=== PATIENT | male | born 1985 | race Caucasian/White ===

== ENCOUNTER 2016-08-18 09:17 | Emergency (ER) | payer OTHER ==
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
[~2016-08-18 09:17] MED LIST: CLINDAMYCIN HC300 MG PO; ERYC250 MG PO; KEFLEX PO; KEFLEX500 M1 PO; MOTRIN600 MG PO; NAPROSYN375 MG PO; NAPROSYN500 MG PO; NAPROXEN PO; NO MEDICATIONS; PEN-VEE K PO; PERCOCET PO; PHENERGAN PO; VOLTAREN75 MG PO
[2016-08-18] MEDS ORDERED: NEURONTIN PO (09:28)
[2016-08-18] MEDS ORDERED: ZOFRAN PO (09:29)
[2016-08-18] MEDS ORDERED: PHENERGAN PO (09:29)
[2016-08-18] MEDS ORDERED: VANCOMYCIN IV (09:29)
== END 2016-08-18 10:57 | disposition home or self-care (01) ==
LOC: SED 09:17
DX: Z43.0 Encounter for attention to tracheostomy (principal); F31.9 Bipolar disorder, unspecified; Z88.0 Allergy status to penicillin; Z88.5 Allergy status to narcotic agent
CPT/HCPCS: 31502; 71010; 94640; 99284

== ENCOUNTER 2016-11-29 08:36 | Emergency (ER) | payer OTHER ==
[~2016-11-29 08:36] MED LIST changes: +NEURONTIN PO; +VANCOMYCIN IV; +ZOFRAN PO
== END 2016-11-29 09:16 | disposition home or self-care (01) ==
LOC: SED 08:36
DX: Z43.0 Encounter for attention to tracheostomy (principal); Z88.0 Allergy status to penicillin; Z88.5 Allergy status to narcotic agent; Z79.899 Other long term (current) drug therapy
CPT/HCPCS: 99283